=== PATIENT | female | born 1990 | race Asian ===

== ENCOUNTER 2018-09-12 19:42 | Emergency (ER) | payer BC, OTHER ==
[~2018-09-12] VITALS: Ht 160 cm; Wt 68.0 kg
[~2018-09-12 19:42] MED LIST: HYDR-3164 PO; NAPR-514 PO; PNV1TABL25 PO
[2018-09-12 19:50] VITALS: BP 114/71
--- NOTE | 2018-09-12 20:03 | PHYS DOC ---
Past Medical History Past Medical History: No Pertinent History Past Surgical History: No Surgical History Alcohol Use: None Drug Use: None Adult General Chief Complaint Chief Complaint: FLU SYMPTOM HPI HPI Patient is a 28 year old female with no significant medical history who presents today complaining of fever and body aches that began yesterday. Patient states her temperatures up gone as high as 103. Patient denies any cough or congestion. Patient had a flu shot in July. Review of Systems Review of Systems Constitutional: Reports fever and body aches Eyes: Denies change in visual acuity, redness, or eye pain [] HENT: Denies nasal congestion or sore throat [] Respiratory: Denies cough or shortness of breath [] Cardiovascular: No additional information not addressed in HPI [] GI: Denies abdominal pain, nausea, vomiting, bloody stools or diarrhea [] : Denies dysuria or hematuria [] Musculoskeletal: Denies back pain or joint pain [] Integument: Denies rash or skin lesions [] Neurologic: Denies headache, focal weakness or sensory changes [] All other systems were reviewed and found to be within normal limits, except as documented in this note. Current Medications Current Medications Current Medications Medications (Trade) Dose Ordered Sig/Jose Manuel Start Time Stop Time Status Last Admin Dose Admin Ibuprofen (Motrin) 800 mg 1X ONCE 09/12/18 20:15 09/12/18 20:16 DC 09/12/18 20:05 800 MG Allergies Allergies Allergies Coded Allergies Type Severity Reaction Last Updated Verified No Known Drug Allergies 12/19/14 No Physical Exam Physical Exam Constitutional: Well developed, well nourished, no acute distress, non-toxic appearance. [] HENT: Normocephalic, atraumatic, bilateral external ears normal, oropharynx moist, no oral exudates, nose normal. [] Eyes: PERRLA, EOMI, conjunctiva normal, no discharge. [] Neck: Normal range of motion, no tenderness, supple, no stridor. [] Cardiovascular:Heart rate regular rhythm, no murmur [] Lungs & Thorax: Bilateral breath sounds clear to auscultation [] Abdomen: Bowel sounds normal, soft, no tenderness, no masses, no pulsatile masses. [] Skin: Warm, dry, no erythema, no rash. [] Back: No tenderness, no CVA tenderness. [] Extremities: No tenderness, no cyanosis, no clubbing, ROM intact, no edema. [] Neurologic: Alert and oriented X 3, normal motor function, normal sensory function, no focal deficits noted. [] Psychologic: Affect normal, judgement normal, mood normal. [] Current Patient Data Vital Signs Vital Signs Date Time Temp Pulse Resp B/P (MAP) Pulse Ox O2 Delivery O2 Flow Rate FiO2 09/12/18 19:50 100.4 110 18 114/71 (85) 98 Room Air 100.4 Lab Values Laboratory Tests Test 09/12/18 19:52 09/12/18 20:29 Influenza Type A Antigen Negative (NEGATIVE) Influenza Type B Antigen Negative (NEGATIVE) Urine Collection Type Unknown Urine Color Yellow Urine Clarity Clear Urine pH 6.0 Urine Specific [place] >=1.030 Urine Protein 30 mg/dL (NEG-TRACE) Urine Glucose (UA) Negative mg/dL (NEG) Urine Ketones (Stick) 40 mg/dL (NEG) Urine Blood Small (NEG) Urine Nitrite Negative (NEG) Urine Bilirubin Small (NEG) Urine Urobilinogen Dipstick 0.2 mg/dL (0.2 mg/dL) Urine Leukocyte Esterase Trace (NEG) Urine RBC 3-5 /HPF (0-2) Urine WBC 1-4 /HPF (0-4) Urine Squamous Epithelial Cells Many /LPF Urine Bacteria Many /HPF (0-FEW) Urine Mucus Marked /LPF EKG EKG [] Radiology/Procedures Radiology/Procedures []PROCEDURE: CHEST PA & LATERAL EXAM: CHEST 2 VIEWS. HISTORY: Flu symptoms. COMPARISON: 03/03/2012. FINDINGS: Frontal and lateral views of the chest are obtained. There are no confluent infiltrates. There is no pneumothorax or pleural effusion. The heart is not enlarged. IMPRESSION: 1. No confluent infiltrates. Electronically signed by: Minnie Chisholm MD (09/12/2018 8:52 PM) [facility] DICTATED and SIGNED BY: LINWOOD CHISHOLM MD DATE: 09/12/182050 Course & Med Decision Making Course & Med Decision Making Pertinent Labs and Imaging studies reviewed. (See chart for details) This is a 28-year-old female patient presenting to the ED today with fever and body aches X1 day. Temperature 100.4 on arrival. Given ibuprofen. Negative influenza A or B. Chest x-ray interpreted by radiologist is negative for any acute findings. Urine analysis is negative for infection. Patient likely has a viral illness going on. She was discharged with instructions to take Tylenol every 4 hours and Motrin every 6 hours, rest and push fluids. Instructed to maintain good hand hygiene at home. Instructed to follow-up with her own primary care doctor in the next 7 days. Instructed to return to the ED at any point symptoms worsen. Dragon Disclaimer Dragon Disclaimer This electronic medical record was generated, in whole or in part, using a voice recognition dictation system. Departure Departure Impression: Primary Impression: Fever Additional Impressions: Body aches Viral illness Disposition: HOME, SELF-CARE Condition: STABLE Referrals: NO PCP (PCP) Follow up with your doctor in the next 1-2 weeks Patient Instructions: Fever, Adult, [id number], Viral Pneumonia, Additional Instructions: You were evaluated in the emergency room for fever and body aches. Your Influenza test was negative. Your chest x-ray was also negative. Your urine analysis was negative for infection. We highly suspect you have a viral illness going on. Please take Tylenol every 4 hours, Motrin every 6 hours, push fluids, rest, maintain good hand hygiene. Follow-up with your doctor in the course of this week. Come back to the emergency room at any point symptoms worsen. Problem Qualifiers Primary Impression: Fever Fever type: unspecified Qualified Codes: R50.9 - Fever, unspecified MARLA COKER APRN Sep 12, 2018 20:03
[2018-09-12] MEDS ORDERED: IBUPROFEN 400 MG TABLET. PO ONE (20:15)
[2018-09-12 20:27] LABS: INFLUENZA A PATIENT NEGATIVE (NEGATIVE); INFLUENZA B PATIENT NEGATIVE (NEGATIVE)
[2018-09-12 20:43] LABS: BILIRUBIN,URINE SMALL (NEG); CLARITY,URINE CLEAR; COLOR,URINE YELLOW; NITRITE,URINE NEGATIVE (NEG); PROTEIN,URINE 30 mg/dL (NEG-TRACE); UROBILINOGEN,URINE 0.2 mg/dL (0.2 mg/dL)
[2018-09-12 20:47] LABS: BACTERIA,URINE MANY /HPF (0-FEW); SQUAMOUS EPITHELIAL CELL,UR MANY /LPF
--- NOTE | 2018-09-12 20:56 | RAD ---
EXAM: CHEST 2 VIEWS. HISTORY: Flu symptoms. COMPARISON: 03/03/2012. FINDINGS: Frontal and lateral views of the chest are obtained. There are no confluent infiltrates. There is no pneumothorax or pleural effusion. The heart is not enlarged. IMPRESSION: 1. No confluent infiltrates. Electronically signed by: Minnie Chisholm MD (09/12/2018 8:52 PM) [facility]
== END 2018-09-12 21:08 | disposition home or self-care (01) ==
LOC: ER 19:42
DX: B34.8 Other viral infections of unspecified site (principal)
CPT/HCPCS: 71046; 81001; 87804; 99284-25

== ENCOUNTER 2021-08-20 00:01 | Emergency (ER) | payer OTHER ==
[~2021-08-20] VITALS: Ht 160 cm; Wt 52.3 kg
[2021-08-20 00:52] VITALS: BP 151/78
--- NOTE | 2021-08-20 03:59 | PHYS DOC ---
Past Medical History Past Surgical History: No Surgical History General Adult EDM: Chief Complaint: FINGER INJURY HPI: HPI: Patient is a 31 year old female who presents with having her ring stuck on her left ring finger. She has been wearing this ring for years, had not tried to take it off until last night. She pulled multiple times to try to remove the ring, without success. She reports that she has some pain and swelling in her left ring finger now. She denies any trauma or injury. Denies any open wounds, fevers, bleeding. No other complaints. Review of Systems: Review of Systems: Constitutional: Denies fever or chills. [] Musculoskeletal: Left ring finger swelling, ring stuck, left ring finger Integument: Denies rash or open skin wounds. Neurologic: Denies focal weakness or sensory changes. [] Heart Score: C/O Chest Pain: No Risk Factors: Risk Factors: DM, Current or recent (<one month) smoker, HTN, HLP, family history of CAD, obesity. Risk Scores: Score 0 - 3: 2.5% MACE over next 6 weeks - Discharge Home Score 4 - 6: 20.3% MACE over next 6 weeks - Admit for Clinical Observation Score 7 - 10: 72.7% MACE over next 6 weeks - Early Invasive Strategies Physical Exam: PE: Constitutional: Well developed, well nourished, no acute distress, non-toxic appearance. [] HENT: Normocephalic, atraumatic Cardiovascular: +2 radial pulse, cap refill is brisk Lungs & Thorax: Respirations are nonlabored Skin: Warm, dry, no erythema, no rash. No open wounds. Extremities: No deformity. There is minimal soft tissue swelling of her left ring finger, there is a gold solid band/ring at the base of her left ring finger. No bony or soft tissue tenderness is noted. She has full passive and active range of motion at her left ring finger MCP, PIP and DIP joints. Sensation is grossly intact. Neurologic: Awake, alert, conversant, ambulatory with a steady gait, sensation is grossly intact, motor grossly intact. Psychologic: Affect normal, judgement normal, mood normal. [] Current Patient Data: Vital Signs: Vital Signs Date Time Temp Pulse Resp B/P (MAP) Pulse Ox O2 Delivery O2 Flow Rate FiO2 08/20/21 00:52 98.0 80 20 151/78 (102) 98 Room Air 98.0 EKG: EKG: [] Radiology/Procedures: Radiology/Procedures: [] Course & Med Decision Making: Course & Med Decision Making I used a ring cutter and remove the ring without difficulty. The patient reports no further discomfort. There is no evidence of any objective evidence of soft tissue or bony tenderness. She has full painless range of motion in all joints of her left ring finger. I recommend avoiding placing any further Jacquelyn ring on this hand or this digit, at least for several weeks. In the future, she should make sure she has a larger ring size, if she so desires. She may elevate and ice as needed for pain or discomfort or swelling. Return precautions are given. She is comfortable with the plan. Diego Disclaimer: Diego Disclaimer: This electronic medical record was generated, in whole or in part, using a voice recognition dictation system. Departure Departure Impression: Primary Impression: Swelling of left ring finger Additional Impression: History of retained foreign body fully removed Disposition: 01 HOME / SELF CARE / HOMELESS Condition: STABLE Referrals: UNKNOWN PCP NAME (PCP) Patient Instructions: Contusion Additional Instructions: You may use ice packs to help with swelling, run your hands under some cold water for brief periods of time to help with swelling. You may take [id number] Tylenol or ibuprofen for any pain. Return to the ER for fever of 100.4 or higher, severe persistent finger swelling, open wounds, severe skin redness or any other concerns. Avoid placing any rings on this finger, preferably for several weeks. If you wish to have another ring, please make sure it is sized appropriately, a larger size than what she had previously been wearing. Follow-up with your primary care physician as needed SIMRAN TAI DO Aug 20, 2021 03:59
== END 2021-08-20 04:24 | disposition home or self-care (01) ==
LOC: MERGE 00:01 → ER 00:01
DX: M79.5 Residual foreign body in soft tissue (principal)
CPT/HCPCS: 99284